=== PATIENT | male | born 1950 | race Hispanic/Latino ===

== ENCOUNTER 2021-01-11 11:28 | Emergency (ER) | payer MEDICARE ==
[~2021-01-11] VITALS: Ht 170.2 cm; Wt 69.9 kg
[2021-01-11] MEDS ORDERED: SODIUM CHLORIDE 0.9% 1000ML 1,000 ML IV STA (11:39)
[2021-01-11 11:59] LABS: BASOPHILS % 0.1 % (0.0-1.0); EOSINOPHILS % 0.1 % (0.0-6.0); HEMATOCRIT 47.7 % (38.2-49.6); HEMOGLOBIN 16.3 g/dL (14.0-18.0); LYMPHOCYTES # (AUTO) 1.7 (1.0-3.2); LYMPHOCYTES % 23.3 % (18.0-39.1); MEAN CORPUSCULAR HEMOGLOBIN 31.2 pg (28-32); MEAN CORPUSCULAR HGB CONC 34.2 g/dL (31-35); MEAN CORPUSCULAR VOLUME 91.2 fL (81-99); MONOCYTES # (AUTO) 0.8 (0.2-0.8); MONOCYTES % 10.9 % (4.4-11.3); NEUTROPHILS # (AUTO) 4.8 (2.1-6.9); NEUTROPHILS % 65.2 % (38.7-80.0); PLATELET COUNT 201 x10e3/uL (140-360); RED BLOOD COUNT 5.23 x10e6/uL (4.3-5.7); RED CELL DISTRIBUTION WIDTH 12.5 % (11.7-14.4)
[2021-01-11] MEDS ORDERED: PANTOPRAZOLE 40 MG 10ML VIAL IV ONE (12:00)
[2021-01-11 12:09] LABS: BACTERIA,URINE RARE /HPF; CLARITY,URINE CLEAR (CLEAR); COLOR,URINE YELLOW (YELLOW); KETONES,URINE TRACE (NEGATIVE); LEUKOCYTE ESTERASE ,URINE NEGATIVE (NEGATIVE); MUCUS,URINE FEW (RARE); NITRITE,URINE NEGATIVE (NEGATIVE); PROTEIN,URINE DIPSTICK 1+ (NEGATIVE); RBC,URINE 0-5 /HPF (0-5); URINE UROBILINOGEN 0.2 mg/dL (0.2 - 1); WBC,URINE (MAN) 0-5 /HPF (0-5)
[2021-01-11 12:10] LABS: INR 0.94; PROTHROMBIN TIME 13.1 seconds (11.9-14.5)
[2021-01-11 12:11] LABS: PARTIAL THROMBOPLASTIN TIME 28.2 seconds (23.8-35.5)
[2021-01-11 12:21] LABS: ALANINE AMINOTRANSFERASE 19 IU/L (0-55); ALBUMIN 3.8 g/dL (3.5-5.0); ALBUMIN/GLOBULIN RATIO 0.9 (0.8-2.0); ALKALINE PHOSPHATASE 85 IU/L (40-150); AMYLASE 92 U/L (25-125); ANION GAP 14.6 mmol/L (8-16); BLOOD UREA NITROGEN 13 mg/dL (7-26); BUN/CREATININE RATIO 13 (6-25); CALCIUM 9.3 mg/dL (8.4-10.2); CARBON DIOXIDE 24 mmol/L (22-29); CHLORIDE 104 mmol/L (98-107); CREATINE KINASE 50 IU/L (30-200); CREATININE, SERUM 1.02 mg/dL (0.72-1.25); EST GLOMERULAR FILTRATION RATE > 60 ML/MIN (60-); GLUCOSE 156 mg/dL (74-118); LIPASE 42 U/L (8-78); POTASSIUM 3.6 mmol/L (3.5-5.1); SODIUM 139 mmol/L (136-145)
[2021-01-11] MEDS ORDERED: IOPAMIDOL 370 MG/ML 200 ML INFUS..BTL INJ ONE (12:51)
[2021-01-11] MEDS ORDERED: SODIUM CHLORIDE 0.9% 50ML 50 ML ONE (12:51)
[2021-01-11 15:07] VITALS: BP 133/67
== END 2021-01-11 15:03 | disposition home or self-care (01) ==
LOC: ER 11:59
DX: R10.32 Left lower quadrant pain (principal); R19.7 Diarrhea, unspecified; E11.65 Type 2 diabetes mellitus with hyperglycemia; I10 Essential (primary) hypertension; E78.5 Hyperlipidemia, unspecified; K21.9 Gastro-esophageal reflux disease without esophagitis
CPT/HCPCS: 36415; 71045; 74177; 80053; 81001; 81003; 82150; 82550; 82553; 83690; 83735; 83880; 84484; 85025; 85610; 85730; 87086; 93005; 99284; C9113; J7030; Q9967